=== PATIENT | male | born 1955 | race Native Hawaiian/Other Pacific Islander ===

== ENCOUNTER 2016-04-13 09:44 | Outpatient (CLI) | payer BC | END 2016-04-13 19:13 | disposition home or self-care (01) | LOC: RAD 09:44 | DX: M79.601 Pain in right arm (principal) ==

== ENCOUNTER 2016-04-14 09:59 | Outpatient (CLI) | payer BC | END 2016-04-14 19:31 | disposition home or self-care (01) | LOC: RAD 09:59 | DX: R05 Cough (principal) ==

== ENCOUNTER 2016-06-30 09:35 | Outpatient (CLI) | payer BC | END 2016-06-30 19:12 | disposition home or self-care (01) | LOC: RAD 09:35 | DX: R05 Cough (principal); R06.02 Shortness of breath ==

== ENCOUNTER 2020-02-26 13:20 | Outpatient (CLI) | payer BC ==
[~2020-02-26] VITALS: Ht 182.9 cm; Wt 90.7 kg
[2020-02-26 13:30] VITALS: BP 134/67; TEMP 98.2
[2020-02-26 14:11] LABS: PLATELET COUNT 144 K/uL (142-355)
== END 2020-02-26 19:15 | disposition home or self-care (01) ==
LOC: INF 13:20 → LAB 13:20 → INF 19:15
PROVIDERS: Internal Medicine; ATTEND Obstetrics & Gynecology Obstetrics
DX: U07.1 COVID-19 (principal)
CPT/HCPCS: 80053; 85027; 96365; Q0239

== ENCOUNTER 2020-06-18 08:53 | Outpatient (CLI) | payer BC, OTHER | END 2020-06-18 22:07 | disposition home or self-care (01) | LOC: INF 08:53 | PROVIDERS: ATTEND Internal Medicine | DX: Z23 Encounter for immunization (principal) | CPT/HCPCS: 96372 ==

== ENCOUNTER 2020-07-10 08:45 | Outpatient (CLI) | payer BC, OTHER | END 2020-07-10 22:13 | disposition home or self-care (01) | LOC: INF | PROVIDERS: ATTEND Internal Medicine | DX: Z23 Encounter for immunization (principal) | CPT/HCPCS: 96372 ==